=== PATIENT | female | born 1975 | race Caucasian/White ===

== ENCOUNTER 2020-12-14 18:02 | Emergency (ER) | payer OTHER ==
[2020-12-14] MEDS ORDERED: CYCLOBENZAPRINE10 MG PO (20:54)
== END 2020-12-14 21:10 | disposition home or self-care (01) ==
LOC: FER 18:02
DX: S76.112A Strain of left quadriceps muscle, fascia and tendon, initial encounter (principal); S76.012A Strain of muscle, fascia and tendon of left hip, initial encounter; M25.561 Pain in right knee; Z88.0 Allergy status to penicillin; Z91.030 Bee allergy status; W00.0XXA Fall on same level due to ice and snow, initial encounter; Y92.410 Unspecified street and highway as the place of occurrence of the external cause
CPT/HCPCS: 72170; 73502; 73552; 96372; J1040; J1885